=== PATIENT | male | born 1965 | race Caucasian/White ===

== ENCOUNTER 2016-10-21 04:01 | Inpatient (IN) | payer MEDICAID ==
[2016-10-21] MEDS ORDERED: AMPICILLIN-SULBACTAM 3 GM in NS 100 ML IV ONE (04:51)
--- NOTE | 2016-10-21 04:54 | EDPRACDOC ---
- General Information Chief Complaint: Generalized Weakness Stated Complaint: LOWER EXTREMITY SWELLING Time Seen by Provider: 10/21/16 04:32 Information Source: Patient Mode Of Arrival: Car Home Medications: Home Medications Albuterol Sulfate [Proair Hfa] 2 puff INH Q6 PRN 08/04/15 Levothyroxine Sodium [Synthroid] 75 mcg PO DAILY 08/04/15 Lisinopril 2.5 mg PO DAILY 08/04/15 Multivitamin [One Daily Multivitamin] 1 each PO DAILY 08/04/15 Phenytoin Sodium [Dilantin] 300 mg PO DAILY 08/04/15 Omeprazole [Prilosec] 20 mg PO DAILY 10/21/16 Allergies/Adverse Reactions: Allergies Allergy/AdvReac Type Severity Reaction Status Date / Time No Known Allergies Allergy Verified 10/21/16 04:38 - History of Present Illness Onset: yesterday Exact Onset of Symptoms: Unknown Date Symptoms Started: 10/20/16 HPI: PATIENT PRESENTS C/O WEAKNESS. NOTED SWELLING OF LEFT LEG AND THEN RIGHT. MILDLY PAINFUL AND RED. Symptoms Started: Reports: Gradually Symptoms Description: Worsening Weakness: Bilateral: Generalized Symptom Severity: Reports: Does not affect activitiy Associated signs and symptoms:: Reports: Fever ED Past Medical History - History Reviewed Yes Nurses notes reviewed and agree except as marked Travel Outside of [place] in the Last 3 Months?: No - Patient Medical History Neurological History: Reports: Seizures (ON DILANTIN 500MG DAILY) Cardiac History: Reports: Hypertension, Congestive Heart Failure (at age 39), Heart Attack (UNKNOWN DATE) Respiratory History: Reports: COPD, Emphysema GI/ History: Reports: Gastroesophageal Reflux Musculoskeletal History: Reports: Arthritis Psychological History: Reports: Anxiety. Denies: Depression Systemic History: Reports: Hypothyroidism. Denies: Cancer, Anemia Surgical History: Reports: Cholecystectomy - Family Medical History Reports: Hypertension (PARENTS, SISTER), Diabetes (AUNT) - Social Medical History Smoking Status: Heavy tobacco smoker (5 or more cigarettes/day or daily pipe/ cigar) Lives With: Family Lives In: Home EDM Review of Systems - Review of Systems ROS Negative Except as Marked: Yes All systems reviewed and were negative except as marked Constitutional: No Symptoms Reported. negative: Fever, Chills, Weakness, Fatigue, Loss of Appetite Eyes: No Symptoms Reported. negative: Redness, Blurred Vision, Double Vision, Discharge, Pain, Light Sensitive, Photophobia Ears: No Symptoms Reported. negative: Pain, Hearing Loss, Drainage, Ear Pulling Throat: No Symptoms Reported. negative: Pain, Swelling Nose: No Symptoms Reported. negative: Congestion, Bleeding, Discharge, Injection, Swelling, Deformity, Ecchymosis, Tender, Abrasion, Laceration Mouth: No Symptoms Reported. negative: Pain, Drooling Respiratory: No Symptoms Reported. negative: Cough, Brassy Cough, Barky Cough, Shortness of Breath, Wheezing, Hemoptysis Cardiovascular: No Symptoms Reported. negative: Chest Pain, Palpitations, Syncope, Edema, Orthopnea, PND, Skin Mottling, Cyanosis Gastrointestinal: No Symptoms Reported. negative: Pain, Constipation, Nausea, Vomiting, Diarrhea, Melena, Formula Intolerance Genitourinary: No Symptoms Reported. negative: Dysuria, Hematuria, Frequency, Discharge, Bleeding, Testicular Pain, Neurological: No Symptoms Reported. negative: Headache, Dizziness, Seizure, Numbness, Weakness, Speech Difficulty, Gait Difficulty Musculoskeletal: Leg. negative: Arm, Ankle, Back, Chestwall, Elbow, Forearm, Femur, Foot, Hand, Hip, Knee, Neck, Pelvis, Ribs, Shoulder, Wrist Integumentary: No Symptoms Reported. negative: Itching, Rash, Bruising, Wound Allergic/Immunologic: No Symptoms Reported. negative: Hives, Itching Hematologic: No Symptoms Reported. negative: Lymphadenopathy, Easy Bruising, Easy Bleeding Endocrine: No Symptoms Reported. negative: Weight Gain, Weight Loss Psychiatric: No Symptoms Reported. negative: Anxiety, Depression, Hallucinations, Insomnia, Suicidal - Physical Exam Constitutional: Alert (Awake) Oriented to: Time, Person, Place Last recorded Vital Signs: Last Vital Signs Temp 98.7 F 10/21/16 04:20 Pulse 90 10/21/16 04:20 Resp 20 10/21/16 04:20 BP 127/68 10/21/16 04:20 Pulse Ox 97 10/21/16 04:20 Oxygen Pulse Oxygen Saturation 97 O2 Device Room Air Oxygen Flow Rate Fraction of Inspired Oxygen ( FIO2) - HEENT Head: Normal ( normocephalic) Eye Exam: Normal (PERRL, EOMI, Sclera white) Oropharynx: Normal (Pharynx:Moist without exudate,Gums-no swelling) Tympanic Membrane: Normal ENT EAC: Normal TMJ: Normal Nose: No Symptoms Reported (septum midline) Neck: Normal (FROM, trachea at midline) - Respiratory/Cardiovascular Respiratory: Normal - CTA (BBS clear to auscultation without adventitious sounds ) Cardiovascular: Normal (RRR without murmur, gallop or rub) - GI Auscultation: Normal (NABS) Palpation: Normal (Soft,No rebound or guarding, non distended) Tenderness: Non tender Tijerina's Sign: Negative - Bladder: Normal - Musculoskeletal Back: Normal (Non-Tender) Extremities: Pedal Edema (B/L UP TO MID CALF WITH ERYTHEMA) - Integumentary Skin: Warm, Dry, Rash Lymphatics: Normal (no adenopathy) - Neurologic Memory Impaired: Normal Motor Function: Normal (Normal tone, Pulses 2+ No cyanosis or edema, FROM) Cranial Nerve: Normal (CN II-X11 intact sensation, strength 5/5) Cerebellar: Normal Mood Description: Normal Perception: Normal - Results 10/21/16 04:25 10/21/16 04:25 - EKG EKG #1 EKG Time: 04:53 -: Yes EKG interpreted by me Rate: bpm: 75 [place]: RAD Rhythm: NSR Block: None Hypertrophy: None ST: Normal - Departure Yes I personally saw and evaluated the patient. Disposition: Admit IP To This Hospital Condition: Fair Final Diagnosis: Weakness Cellulitis, leg Qualifiers: Laterality: unspecified laterality Qualified Code(s): L03.119 - Cellulitis of unspecified part of limb Cellulitis, leg Qualifiers: Laterality: unspecified laterality Qualified Code(s): L03.119 - Cellulitis of unspecified part of limb Instructions: Weakness (General) Education/Counseling Given To: Patient Education/Counseling Given Regarding: Diagnosis, Treatment, Prognosis Referrals: Yasmany Calles MD [Primary Care Provider] - One Week Decision to Admit Time: 05:59 Decision to admit date: 10/21/16 Decision to admit: from ED - Physician Consulted Hospitalist Time Called: 05:59 Provider Called: Katrina Grissom Time Airframe Design Engineer Returned Call: 05:59
[2016-10-21 05:07] LABS: AUTOMATED BASOPHIL 0.4 % (0-2); AUTOMATED EOSINOPHIL 0.5 % (0-5); AUTOMATED LYMPH 6.5 % (17-44); AUTOMATED MONOCYTE 6.2 % (3-10); AUTOMATED NEUTROPHIL 86.4 % (45-76); MPV 7.8 fL (7.4-10.4)
[2016-10-21 05:12] LABS: BLOOD UREA NITROGEN 19 MG/DL (9-20); CALCIUM 9.3 MG/DL (8.4-10.2); CALCULATED OSMOLALITY 259 MOs/Kg (270-290); CHLORIDE 96 mEq/L (98-107); GLUCOSE 138 MG/DL (70-99); SODIUM LEVEL 132 mEq/L (137-146)
[2016-10-21 05:13] LABS: PARTIAL THROMB. TIME 32.1 SEC (22-35); PT-INR 1.1
--- NOTE | 2016-10-21 05:20 | DIRPT ---
CLINICAL DATA: 51-year-old male with chest pain EXAM: PORTABLE CHEST 1 VIEW COMPARISON: Radiograph dated 10/13/2012 FINDINGS: Single-view of chest does not demonstrate a focal consolidation. There is no pleural effusion or pneumothorax. The cardiac silhouette is within normal limits. There is chronic right shoulder deformity. No acute fracture. IMPRESSION: No active disease. Electronically Signed By: Darvin Stark M.D. On: 10/21/2016 05:17
[2016-10-21] MEDS ORDERED: SIMETHICONE 80 MG TAB PO PRN (06:17)
[2016-10-21] MEDS ORDERED: ONDANSETRON HCL 4 MG/2 ML VIAL IV PRN (06:17)
[2016-10-21] MEDS ORDERED: PROMETHAZINE 25 MG/ML VIAL IV PRN (06:17)
[2016-10-21] MEDS ORDERED: BENZONATATE 100 MG PERLES PO PRN (06:17)
[2016-10-21] MEDS ORDERED: ACETAMINOPHEN 325 MG/TAB TABLET PO PRN (06:17)
[2016-10-21] MEDS ORDERED: DOCUSATE-SENNA CONCENTRATE TAB PO PRN (06:17)
[2016-10-21] MEDS ORDERED: ACETAMINOPHEN 650 MG SUPP PR PRN (06:17)
[2016-10-21] MEDS ORDERED: SODIUM CHLORIDE 0.9% 3 ML FLUSH FLUSH PRN (06:17)
[2016-10-21] MEDS ORDERED: TEMAZEPAM 15 MG CAP PO PRN (06:17)
--- NOTE | 2016-10-21 06:23 | HISTPHYS ---
- Chief Complaint legs red and painful - History of Present Illness Pablo Boyer is a 51 year old man who states that his left leg began to swell , and then became painful and red with fairly rapid onset beginning yesterday morning. Today his right leg is also red and swollen around the ankle, although not as much as the left leg. He denies any recent injury or change in medications. He has not had any fever or chills, but he is aching all over, as if he has the flu, and feels tired. He states nothing like this has ever happened to him before. - Medical History Cardiac History: Reports: Hypertension, Congestive Heart Failure (at age 39), Heart Attack (UNKNOWN DATE, Hx of V-fib in past records) Respiratory History: Reports: COPD, Emphysema GI/ History: Reports: Liver Failure (HCV), Gastroesophageal Reflux, Ulcer ( hemorrhagic gastritis) Musculoskeletal History: Reports: Arthritis Systemic History: Reports: Hypothyroidism. Denies: Cancer, Anemia Neurological History: Reports: Seizures (ON DILANTIN 500MG DAILY) Psychological History: Reports: Anxiety, Bipolar Disorder, Alcoholism. Denies: Depression - Surgical History Reports: Cholecystectomy, Other (R knee arthroscopy/removal of hardware, EGD- ( gastritis)) - Medictions/Allergies Allergies No Known Allergies Allergy (Verified 10/21/16 04:38) Current Medication List: Reviewed Home Medications Albuterol Sulfate [Proair Hfa] 2 puff INH Q6 PRN 08/04/15 Levothyroxine Sodium [Synthroid] 75 mcg PO DAILY 08/04/15 Lisinopril 2.5 mg PO DAILY 08/04/15 Multivitamin [One Daily Multivitamin] 1 each PO DAILY 08/04/15 Phenytoin Sodium [Dilantin] 300 mg PO DAILY 08/04/15 Omeprazole [Prilosec] 20 mg PO DAILY 10/21/16 - Family History Reports: Hypertension (PARENTS, SISTER), Diabetes (AUNT), Cardiac Disorders (Dad ), Other (sis- R. Arthtritis) - Social History Travel Outside of US in the Last 3 Months?: No Lives: Alone Smoking Status: Heavy tobacco smoker (5 or more cigarettes/day or daily pipe/ cigar) (2 ppd) Social History: Reports: Alcohol Use - Review of Systems Constitutional: Fatigue, Weakness, Other (aching). negative: Fever Eyes: No Symptoms Reported Ears: No Symptoms Reported Nose: No Symptoms Reported Mouth: Dry Mouth, Poor Dentition Throat/Neck: No Symptoms Reported Respiratory: Shortness of Breath, Wheezing Cardiovascular: Edema, Palpitations Gastrointestinal: Nausea, Melena, Heartburn Genitourinary: Nocturia. negative: Dysuria, Frequency, Testicular Pain, Flank Pain, Benign prostatic hyperplasia (BPH) Neurological: Gait Difficulty, Headache, Seizure, Weakness, Mood Changes, Memory Changes. negative: Dizziness Musculoskeletal:: Osteoarthritis, Weakness, Joint Pain, Swelling (legs) Allergic/Immunologic: No Symptoms Reported Hematologic: No Symptoms Reported Endocrine: Cold Intolerance, Hypothyroidism Psychiatric: Anxiety - Physical Exam Vital Signs: Initial Vitals Temperature 98.7 F 10/21/16 04:20 Pulse Rate 90 10/21/16 04:20 Respiratory Rate 10/21/16 04:20 Blood Pressure 127/68 10/21/16 04:20 Pulse Oxygen Saturation 97 10/21/16 04:20 Constitutional: Alert Oriented to: Person, Place - HEENT Head: Normal, Other (face with patchy macular rash on malar prominence) Eye: Normal (PERRL: EOMI) Oropharynx: Membranes Dry, Red. negative: Exudate, Tonsillar Hypertrophy ENT EAC: Normal Nose: negative: Bleeding, Congestion, Discharge Respiratory: Normal - CTA, Diminished. negative: Rales, Retractions Cardiovascular: Normal (regular rhythm and rate, no murmur) - GI Auscultation: Normal Palpation: Normal (soft, thin, scaphoid abdomen, no mass, no hepatosplenomegaly) Tenderness: Non tender Tijerina's Sign: Negative Rectal Exam: Deferred - Musculoskeletal Back: Normal, No Palpable Step-off Extremities: Edema (L leg swollen more than right) Spine: non-tender, normal alignment, normal inspection - Integumentary Skin: Warm, Dry, Rash (erythema and edema, with increased warmth and inflammation feet and ankles) Lymphatics: Normal. negative: Adenopathy - Neurologic Memory Impaired: Normal Motor Function: Normal Cranial Nerve: Normal Cerebellar: Normal Mood Description: Anxious Thought: Coherent Perception: Normal - Focused CV Perfusion Exam Vital Signs: Last Vital Signs Temp 98.7 F 10/21/16 04:20 Pulse 90 10/21/16 04:20 Resp 20 10/21/16 04:20 BP 127/68 01/19/17 04:20 Pulse Ox 97 10/21/16 04:20 - Lab Results Laboratory Tests 10/21/16 10/21/16 10/21/16 04:25 04:25 04:25 WBC 13.6 H Hgb 13.8 L Hct 41.2 L Plt Count 233 Neut % (Auto) 86.4 H Lymph % (Auto) 6.5 L [place] % (Auto) 6.2 Eos % (Auto) 0.5 PT 11.7 H INR 1.1 APTT 32.1 Sodium 132 L Potassium 3.5 Chloride 96 L Carbon Dioxide 25 Anion Gap 15 BUN 19 Creatinine 0.90 Estimated GFR (MDRD) > 60 Glucose 138 H Calculated Osmolality 259 L Lactic Acid Calcium 9.3 Total Bilirubin 1.3 AST 41 ALT 28 Alkaline Phosphatase 104 Troponin I < 0.01 [id number] Pept 52 Total Protein 8.0 Albumin 4.2 10/21/16 04:25 WBC Hgb Hct Plt Count Neut % (Auto) Lymph % (Auto) [place] % (Auto) Eos % (Auto) PT INR APTT Sodium Potassium Chloride Carbon Dioxide Anion Gap BUN Creatinine Estimated GFR (MDRD) Glucose Calculated Osmolality Lactic Acid 1.1 Calcium Total Bilirubin AST ALT Alkaline Phosphatase Troponin I [id number] Pept Total Protein Albumin - Diagnostic Findings CXR: FINDINGS: Single-view of chest does not demonstrate a focal consolidation. There is no pleural effusion or pneumothorax. The cardiac silhouette is within normal limits. There is chronic right shoulder deformity. No acute fracture. IMPRESSION: No active disease. Electronically Signed By: Darvin Stark M.D. On: 10/21/2016 05:17 - Assessment (1) Cellulitis, leg L03.119 - CELLULITIS OF UNSPECIFIED PART OF LIMB Acute Present on Admission: Yes Qualifiers: Laterality: unspecified laterality Qualified Code(s): L03.119 - Cellulitis of unspecified part of limb Admit. Bilateral cellulitis of distal lower extremities of sudden onset with increased pain and swelling, likely to be bacterial. Obtain blood cultures and start IV antibiotics. No history of diabetes, but patient does have HCV and history of chronic alcohol abuse. Watch for ETOH withdrawal. (2) Weakness R53.1 - WEAKNESS Acute Present on Admission: Yes Probably due to acute infection. Will give IV fluids and get nutritional consult. Control pain with adequate analgesia. (3) COPD (chronic obstructive pulmonary disease) J44.9 - CHRONIC OBSTRUCTIVE PULMONARY DISEASE, UNSPECIFIED Acute Present on Admission: Yes Qualifiers: COPD type: chronic bronchitis Chronic bronchitis type: simple Emphysema type: E Qualified Code(s): J41.0 - Simple chronic bronchitis Heavy smoker, always has chronic cough. Encouraged smoking cessation. Start Duo -Nebs while in hospital and encourage incentive spirometry. (4) Hypothyroidism E03.9 - HYPOTHYROIDISM, UNSPECIFIED Chronic Present on Admission: Yes Qualifiers: Hypothyroidism type: acquired Qualified Code(s): E03.9 - Hypothyroidism, unspecified continue current dose of Synthroid (5) HCV (hepatitis C virus) B19.20 - UNSPECIFIED VIRAL HEPATITIS C WITHOUT HEPATIC COMA Chronic Present on Admission: Yes Qualifiers: Viral hepatitis chronicity: chronic Hepatic coma status: without hepatic coma Qualified Code(s): B18.2 - Chronic viral hepatitis C Noted. Monitor liver profile. Case Care Discussed with: Patient, Nursing Staff Total Time: 55 min Critical Care: No Couseling Time (>50% in counseling/coordination): No Code: 87703
[2016-10-21] MEDS: Albuterol/Ipratropium Neb 3 ML NEB NEB SCH ×3 (07:44→20:47)
[2016-10-21] MEDS ORDERED: Non-Formulary Medication ITEM (Omeprazole 20 MG) PO SCH (09:00)
[2016-10-21] MEDS ORDERED: MULTIVITAMIN PO SCH (09:00)
[2016-10-21] MEDS: NS 1,000 ML IV SCH ×2 (09:37→20:56)
[2016-10-21] MEDS: LEVOTHYROXINE 75 MCG (0.075 MG) TAB PO SCH (09:43)
[2016-10-21] MEDS: PHENYTOIN SODIUM 100 MG CAP PO SCH ×2 (09:43→19:42)
[2016-10-21] MEDS: NICOTINE 21 MG PATCH TOP SCH (09:43)
[2016-10-21] MEDS: LISINOPRIL 2.5 MG TAB PO SCH (09:43)
[2016-10-21] MEDS ORDERED: Vaccine Screening Complete SCH (10:00)
[2016-10-21] MEDS: VITAMINS, MULTIPLE CAP PO SCH (11:44)
[2016-10-21] MEDS: AMPICILLIN-SULBACTAM 3 GM in NS 100 ML IV SCH ×2 (11:44→17:09)
[2016-10-21] MEDS: SODIUM CHLORIDE 0.9% 3 ML FLUSH FLUSH SCH (17:06)
[2016-10-21] MEDS: ENOXAPARIN 40 MG/0.4 ML PFS SQ SCH (17:09)
[2016-10-21] MEDS: MORPHINE 2 MG/ML INJECTION IV PRN (21:35)
[2016-10-22] MEDS: AMPICILLIN-SULBACTAM 3 GM in NS 100 ML IV SCH ×5 (00:36→23:01)
[2016-10-22] MEDS: Albuterol/Ipratropium Neb 3 ML NEB NEB SCH ×2 (01:28→08:48)
[2016-10-22] MEDS: SODIUM CHLORIDE 0.9% 3 ML FLUSH FLUSH SCH ×2 (05:13→18:52)
[2016-10-22] MEDS: PANTOPRAZOLE 40 MG TAB PO SCH (05:42)
[2016-10-22 07:14] LABS: AUTOMATED BASOPHIL 0.4 % (0-2); AUTOMATED EOSINOPHIL 3.2 % (0-5); AUTOMATED LYMPH 13.5 % (17-44); AUTOMATED MONOCYTE 9.2 % (3-10); AUTOMATED NEUTROPHIL 73.7 % (45-76); MPV 7.4 fL (7.4-10.4)
[2016-10-22 07:29] LABS: BLOOD UREA NITROGEN 9 MG/DL (9-20); CALCIUM 8.4 MG/DL (8.4-10.2); CALCULATED OSMOLALITY 263 MOs/Kg (270-290); CHLORIDE 101 mEq/L (98-107); GLUCOSE 98 MG/DL (70-99); SODIUM LEVEL 137 mEq/L (137-146)
[2016-10-22] MEDS: NS 1,000 ML IV SCH (08:24)
[2016-10-22] MEDS: PHENYTOIN SODIUM 100 MG CAP PO SCH ×2 (08:27→20:55)
[2016-10-22] MEDS: LEVOTHYROXINE 75 MCG (0.075 MG) TAB PO SCH (08:28)
[2016-10-22] MEDS: NICOTINE 21 MG PATCH TOP SCH (08:28)
[2016-10-22] MEDS ORDERED: Albuterol/Ipratropium Neb 3 ML NEB NEB PRN (11:39)
--- NOTE | 2016-10-22 12:49 | GENMEDPROG ---
Chief Complaint: Lower extremity cellulitis Subjective Note: Patient feels improved, but still quite red. Denies any chest pain, shortness, nausea, vomiting or fevers. - Physical Examination Vital Signs and I&O: Last Vital Signs Temp 98.2 F 10/22/16 05:48 Pulse 70 10/22/16 05:48 Resp 18 10/22/16 05:48 BP 105/60 10/22/16 05:48 Pulse Ox 99 10/22/16 05:48 Oxygen Pulse Oxygen Saturation 99 O2 Device Room Air Oxygen Flow Rate Fraction of Inspired Oxygen ( FIO2) Intake & Output 10/20/16 10/21/16 10/22/16 10/23/16 06:59 06:59 06:59 06:59 Intake Total 100 2553 240 Output Total 2300 1025 Balance 100 253 -785 Patient's weight 58.423 kg General: Alert, Oriented x3, No acute distress, Well appearing, Well nourished, Other (Normal and appropriate affect) HEENT: EOMI (Sclera white) Neck: Normal Trachea alignment, Normal inspection Lymphatics: Normal. negative: Adenopathy Respiratory: Normal - CTA, Diminished. negative: Rales, Retractions Cardiovascular: Regular rate, No Gallops,Rubs/Murmurs GI: Normal bowel sounds, Soft, Non tender (non distended) Extremities/Musculoskeletal: Other (Normal Tone. He has an area of confluent redness the left lower extremity about the ankle, extending up to the mid lindsay. Warm to touch, no induration or areas of fluctuance. Also has a small area of similar redness without induration or fluctuance about the right ankle.). negative: Edema, Cyanosis Skin: No rashes, No significant lesion Neurological: Cranial Nerves (II-XII intact) Psych/Mental Status: Normal Affect (Fully oriented, [place] and appropriate affect ) Lab/DI/Studies Reviewed: Laboratory Tests 10/21/16 10/22/16 10/22/16 04:25 06:42 06:42 WBC 13.6 H 8.0 Hgb 13.8 L 12.5 L Hct 36.9 L Potassium 4.0 BUN 9 Creatinine 0.60 L - Assessment (1) Cellulitis, leg Acute L03.119 - CELLULITIS OF UNSPECIFIED PART OF LIMB Qualifiers: Laterality: unspecified laterality Qualified Code(s): L03.119 - Cellulitis of unspecified part of limb Comment/Plan: Admit. Bilateral cellulitis of distal lower extremities of sudden onset with increased pain and swelling, likely to be bacterial. Obtain blood cultures and start IV antibiotics, responding well to IV Unasyn. No history of diabetes, but patient does have HCV and history of chronic alcohol abuse. Watch for ETOH withdrawal. (2) COPD (chronic obstructive pulmonary disease) Acute J44.9 - CHRONIC OBSTRUCTIVE PULMONARY DISEASE, UNSPECIFIED Qualifiers: COPD type: chronic bronchitis Chronic bronchitis type: simple Emphysema type: E Qualified Code(s): J41.0 - Simple chronic bronchitis Comment/Plan: Heavy smoker, always has chronic cough. Encouraged smoking cessation. Start Duo-Nebs while in hospital and encourage incentive spirometry. (3) HCV (hepatitis C virus) Chronic B19.20 - UNSPECIFIED VIRAL HEPATITIS C WITHOUT HEPATIC COMA Qualifiers: Viral hepatitis chronicity: chronic Hepatic coma status: without hepatic coma Qualified Code(s): B18.2 - Chronic viral hepatitis C Comment/Plan: Noted. Monitor liver profile. (4) Hypothyroidism Chronic E03.9 - HYPOTHYROIDISM, UNSPECIFIED Qualifiers: Hypothyroidism type: acquired Qualified Code(s): E03.9 - Hypothyroidism, unspecified Comment/Plan: continue current dose of Synthroid - Plan Continue present care, as symptoms are improving. Likely needs another 24-48 hours of IV antibiotics before be ready for discharge home on p.o. antibiotics.
[2016-10-22] MEDS: LISINOPRIL 2.5 MG TAB PO SCH (13:23)
[2016-10-22] MEDS: VITAMINS, MULTIPLE CAP PO SCH (13:24)
[2016-10-22] MEDS: QUETIAPINE FUMARATE 25 MG TAB PO SCH ×2 (17:13→20:56)
[2016-10-22] MEDS: ENOXAPARIN 40 MG/0.4 ML PFS SQ SCH (18:52)
[2016-10-22] MEDS: MORPHINE 2 MG/ML INJECTION IV PRN (20:58)
[2016-10-23] MEDS: AMPICILLIN-SULBACTAM 3 GM in NS 100 ML IV SCH ×2 (05:19→11:07)
[2016-10-23] MEDS: PANTOPRAZOLE 40 MG TAB PO SCH (05:19)
[2016-10-23] MEDS: SODIUM CHLORIDE 0.9% 3 ML FLUSH FLUSH SCH (05:19)
[2016-10-23 05:24] VITALS: BP 110/70; PULSE 77; TEMP 98
[2016-10-23 06:40] VITALS: BMI 19.1
--- NOTE | 2016-10-23 07:47 | PCM.DCS92 ---
- Final/Secondary Discharge Diagnosis (1) Cellulitis, leg Acute L03.119 - CELLULITIS OF UNSPECIFIED PART OF LIMB Present on Admission: Yes unspecified laterality L03.119 - Cellulitis of unspecified part of limb Comment: Patient admitted due to bilateral cellulitis of distal lower extremities of sudden onset with increased pain and swelling, likely to be bacterial. Obtain blood cultures and start IV antibiotics, responding well to IV Unasyn. No history of diabetes, but patient does have HCV and history of chronic alcohol abuse. No evidence of alcohol withdrawal while here in the hospital. (2) COPD (chronic obstructive pulmonary disease) Acute J44.9 - CHRONIC OBSTRUCTIVE PULMONARY DISEASE, UNSPECIFIED Present on Admission: Yes chronic bronchitis simple E J41.0 - Simple chronic bronchitis Comment: Heavy smoker, always has chronic cough. Encouraged smoking cessation. Start Duo-Nebs while in hospital and encourage incentive spirometry. Discharge home today with nicotine patch. (3) HCV (hepatitis C virus) Chronic B19.20 - UNSPECIFIED VIRAL HEPATITIS C WITHOUT HEPATIC COMA Present on Admission: Yes chronic without hepatic coma B18.2 - Chronic viral hepatitis C Comment: Noted. Monitor liver profile. (4) Hypothyroidism Chronic E03.9 - HYPOTHYROIDISM, UNSPECIFIED Present on Admission: Yes acquired E03.9 - Hypothyroidism, unspecified Comment: continue current dose of Synthroid Discharge Disposition: Home Discharge Condition: Fair Fuctional Discharge Status: Independent Physician Follow up/Referrals: Yasmany Calles MD [Primary Care Provider] - One Week Home Medications / New Prescriptions: New Cephalexin Monohydrate [Keflex] 500 mg PO Q6H #32 cap Nicotine [Nicoderm] 21 mg TOP Q24H #30 pat Continue Phenytoin Sodium [Dilantin] 300 mg PO DAILY Lisinopril 2.5 mg PO DAILY Albuterol Sulfate [Proair Hfa] 2 puff INH Q6 PRN PRN Reason: COUGH, WHEEZING Multivitamin [One Daily Multivitamin] 1 each PO DAILY Levothyroxine Sodium [Synthroid] 75 mcg PO DAILY Omeprazole [Prilosec] 20 mg PO DAILY Quetiapine Fumarate [Seroquel] 75 mg PO DAILY Phenytoin Sodium [Dilantin] 200 mg PO HS O2 Device: Room Air Diet at Discharge: Regular Activity: No Restrictions Discontinue use of:: All Types of Tobacco - DC Summary Notes HPI/Notes: This is a pleasant 51-year-old male with a history of HCV and alcohol abuse was admitted to the hospital with bilateral cellulitis. He responded well to IV Unasyn therapy, he will be discharged from the hospital today to complete a total 1 week course of antibiotics. Please see the hospital problems and discharge problems above for details of the hospital course including diagnostics and treatment. The plan of care including medications, prognosis, follow-up including alarm symptoms for which medical care should be sought were reviewed with the patient and any available family members/caretakers. The patient is agreeable to discharge today, and all questions were answered by me to their satisfaction. Hospital Course Note:: Discharge summary on patient named RAMILA LUCAS admitted to [facility] on 10/21/16 by Katrina Grissom MD. Date of discharge is []. Total Time: 38 - Physical Exam Vital Signs: Last Vital Signs Temp 98 F 10/23/16 05:24 Pulse 77 10/23/16 05:24 Resp 18 10/23/16 05:24 BP 110/70 10/23/16 05:24 Pulse Ox 98 10/23/16 05:24 Oxygen Pulse Oxygen Saturation 98 O2 Device Room Air Oxygen Flow Rate Fraction of Inspired Oxygen ( FIO2) Constitutional: No apparent distress, Alert Oriented to: Time, Person, Place - HEENT Head: Normal, Other (face with patchy macular rash on malar prominence) Eye: Normal (PERRL: EOMI) Oropharynx: Membranes Dry, Red. negative: Exudate, Tonsillar Hypertrophy ENT EAC: Normal Nose: negative: Bleeding, Congestion, Discharge - Respiratory/Cardiovascular Respiratory: Normal - CTA, Diminished. negative: Rales, Retractions - GI Auscultation: Normal Palpation: Normal (soft, thin, scaphoid abdomen, no mass, no hepatosplenomegaly) Tenderness: Non tender Tijerina's Sign: Negative Rectal Exam: Deferred - Musculoskeletal Back: Normal, No Palpable Step-off Extremities: Edema (Left leg with minimal swelling as compared to the right. Very minimal erythema around the left lower ankle. No open areas, no areas of induration. Much improved, even from my exam yesterday.) - Integumentary Lymphatics: Normal. negative: Adenopathy - Neurologic Memory Impaired: Normal Cerebellar: Normal Mood Description: Anxious Thought: Coherent Perception: Normal
[2016-10-23] MEDS: LEVOTHYROXINE 75 MCG (0.075 MG) TAB PO SCH (07:51)
[2016-10-23] MEDS: NICOTINE 21 MG PATCH TOP SCH (07:52)
[2016-10-23] MEDS: PHENYTOIN SODIUM 100 MG CAP PO SCH (07:53)
[2016-10-23] MEDS: QUETIAPINE FUMARATE 25 MG TAB PO SCH (07:53)
[2016-10-23] MEDS: LISINOPRIL 2.5 MG TAB PO SCH (07:54)
[2016-10-23] MEDS: VITAMINS, MULTIPLE CAP PO SCH (11:07)
== END 2016-10-23 13:15 | disposition home or self-care (01) | DRG 603 ==
LOC: ED 04:01 → MPS3 06:17
PROVIDERS: ADMIT Family Medicine; ATTEND Internal Medicine
DX: L03.116 Cellulitis of left lower limb (principal); I50.9 Heart failure, unspecified; R56.9 Unspecified convulsions; L03.115 Cellulitis of right lower limb; J44.9 Chronic obstructive pulmonary disease, unspecified; B18.2 Chronic viral hepatitis C; E03.9 Hypothyroidism, unspecified; I10 Essential (primary) hypertension; I25.2 Old myocardial infarction; K21.9 Gastro-esophageal reflux disease without esophagitis; M19.90 Unspecified osteoarthritis, unspecified site; F41.9 Anxiety disorder, unspecified; F31.9 Bipolar disorder, unspecified; Z79.899 Other long term (current) drug therapy; F17.210 Nicotine dependence, cigarettes, uncomplicated; R53.1 Weakness; Z72.89 Other problems related to lifestyle
CPT/HCPCS: 36415; 51701; 51798; 71010; 80048; 80053; 80185; 83605; 83880; 84484; 85025; 85610; 85730; 87040; 93005; 94640; 96365; 96372; 99284; 99406; G0237; J0295; J1650; J2270; J3490; J7030; J7620